=== PATIENT | female | born 1955 | race Caucasian/White ===

== ENCOUNTER 2016-07-08 00:49 | Outpatient (CLI) | END 2016-07-08 00:50 | LOC: AMBL 00:49 | PROVIDERS: ATTEND Family Medicine | DX: R06.02 Shortness of breath (principal); C34.90 Malignant neoplasm of unspecified part of unspecified bronchus or lung; Z99.81 Dependence on supplemental oxygen; Z79.899 Other long term (current) drug therapy ==

== ENCOUNTER 2017-07-26 10:58 | Day surgery (SDC) ==
[2017-07-26] MEDS ORDERED: LIDOCAINE 1% 20 ML MDV ID STA (11:43)
[2017-07-26] MEDS ORDERED: DIPRIVAN 20 ML VIAL IVP ONE (12:51)
[2017-07-26] MEDS ORDERED: VERSED ONE (12:51)
[2017-07-26 14:29] VITALS: BP 118/67; TEMP 98.6
--- NOTE | 2017-07-27 13:34 | OP ---
INDICATIONS FOR PROCEDURE: This is a 62-year-old female who presents for colonoscopy evaluation and abnormal CT scan. CT scan of the abdomen and pelvis suggested thickening in her cecum, possible malignancy. She does have some vague abdominal discomfort. MEDICATIONS: SEE ANESTHESIA NOTES. PROCEDURE: COLONOSCOPY, BIOPSY, SNARE POLYPECTOMY. REPORT: The risks, benefits, alternatives and limitations were discussed in detail with the patient. Informed consent was obtained. After adequate sedation was achieved, a digital rectal exam revealed good tone, no masses. The colonoscope was introduced into the rectum and advanced under direct visual guidance to the cecum. I identified the cecum by transillumination. I could see the IC valve. The cecum was very distorted and deformed. Looking at it from the ascending colon there appeared to be a carpeting polyp covering the entire left wall of the cecum extending to the very proximal ascending colon. This had the appearance of a villous carpeting polyp. I biopsied this for histologic review. I labeled this bottle "carpeting polyp". The base of the cecum was completely distorted. I could not see the appendiceal orifice. Here is where the carpeting polyp was more pronounced. It felt a little firm when I biopsied it. This appeared to be a portion of the diffuse carpeting polyp that may have malignant change present. I could not see all of the cecum secondary to the distortion from this polypoid mass lesion. I biopsied this area and named it "distorted cecum". I did see the bowel but I was not able to intubate the terminal ileum. The scope would not pass into the ileocecal valve into the ileum. I then slowly withdrew the scope in a circumferential manner examining the mucosa quite carefully. I looked on the proximal and distal side of folds and flexures as best as possible. I retroflexed the scope in the right colon and the left colon to increase visualization. In the distal ascending colon there is approximately a 1 cm slightly raised polyp that I removed by snare technique. At the hepatic flexure noted on retroflex view there is a 7 mm semipedunculated polyp that I removed by snare technique. In the sigmoid colon there were two polyps, one is about 8 mm in size and slightly raised. I removed this by snare technique. The other was about 4-5mm in size and I was able to destroy it by snare technique. In the distal sigmoid there were two polyps. Both about 7 mm in size and slightly raised, slightly pedunculated. They were removed by snare technique and placed in the same pathology jar together. In the rectum there were two diminutive polyps that I destroyed using a snare. No other abnormalities noted including on retroflex view of the anal canal. The prep was adequate. The withdrawal time was 21 minutes and 27 seconds. The patient tolerated the procedure well with stable vital signs and pulse oximetry throughout. IMPRESSION: 1. POLYPOID CECAL MASS LESION DISTORTING THE ENTIRE CECUM. THIS APPEARS TO BE A LARGE CARPETING POLYP THAT HAS DISTORTED THE CECUM AND I SUSPECT THERE IS MALIGNANT CHANGE IN THIS SIGNIFICANTLY DISTORTED PORTION. 2. EIGHT (8) POLYPS REMOVED FROM THE COLON DESCRIBED ABOVE. RECOMMENDATIONS: 1. Await pathology results of the cecal mass lesion and the polyp. 2. She is going to need surgical resection of the polypoid cecal mass. I have asked her to followup with her primary care physician in one weeks time about referral to a general surgeon that participates in the patient's insurance. My office will work with the PCP's office. 3. I suspect her vague abdominal discomfort is secondary to this lesion and possibly partial obstruction as it appears to be distorting the IC valve but since she had a CT scan showing some mild thickening in the stomach, I recommend endoscopy evaluation in two weeks to complete the GI evaluation. 4. Recommend repeat colonoscopy examination again in one year. CC: DR. TONNY BULLOCK
== END 2017-07-26 14:10 | disposition home or self-care (01) ==
LOC: SURG 10:58
PROVIDERS: ATTEND Internal Medicine Gastroenterology
DX: R93.5 Abnormal findings on diagnostic imaging of other abdominal regions, including retroperitoneum (principal); D12.2 Benign neoplasm of ascending colon; D12.4 Benign neoplasm of descending colon; D12.3 Benign neoplasm of transverse colon; K63.5 Polyp of colon; R10.9 Unspecified abdominal pain

== ENCOUNTER 2017-08-09 06:50 | Day surgery (SDC) ==
[2017-08-09] MEDS ORDERED: ALBUTEROL 0.083% NEB NEB STA (07:22)
[2017-08-09] MEDS ORDERED: LIDOCAINE 1% 20 ML MDV ID STA (07:22)
[2017-08-09] MEDS ORDERED: LIDOCAINE HCL 2% LUER-JET ONE (09:00)
[2017-08-09] MEDS ORDERED: DIPRIVAN 20 ML VIAL IVP ONE (09:00)
[2017-08-09] MEDS ORDERED: VERSED ONE (09:00)
[2017-08-09 09:14] VITALS: BP 100/58
--- NOTE | 2017-08-10 09:20 | OP ---
INDICATIONS FOR PROCEDURE: 62 year old female presents for endoscopy evaluation of an abnormal CT scan. This showed some nonspecific thickening of the gastric wall. She has chronic abdominal pain on the last 8-9 months. Colonoscopy revealed abnormal cecal area. She is scheduled for endoscopy investigation. MEDICATIONS: SEE ANESTHESIA NOTES. PROCEDURE: ENDOSCOPY, DIONY BIOPSY. REPORT: The risks, benefits, alternatives and limitations were discussed in detail with the patient. Informed consent was obtained. After adequate sedation was achieved, the video endoscope was introduced in the posterior pharynx and esophagus under direct vision and easily advanced down to the second portion of the duodenum. I then slowly withdrew. The duodenal mucosa appeared unremarkable as did the duodenal bulb. The antrum and the body appeared somewhat atrophic. There were no ulcerations or inflammatory lesions present. No mass lesion present. The lining was smooth throughout although it appeared atrophic. Two biopsies were obtained from the antrum wall and from the body for H. Pylori testing. The scope was retroflexed to look at the cardia and fundus which was unremarkable. The scope was anteflexed and withdrawn back through the esophagus which was unremarkable. The patient tolerated the procedure well with stable vital signs and pulse oximetry throughout. IMPRESSION: 1. Mild appearing atrophic gastritis 2. Nothing that would account for intestinal symptoms RECOMMENDATIONS: 1. Await H. Pylori and if it's positive we will initiate treatment when appropriate 2. Keep appointment with Dr. Crowe in [place] for general surgical evaluation of the abnormal colon 3. We will see her back in the office as needed. CC: Dr. Chung BULLOCK
== END 2017-08-09 09:45 | disposition home or self-care (01) ==
LOC: SURG 06:50
PROVIDERS: ATTEND Internal Medicine Gastroenterology
DX: K29.40 Chronic atrophic gastritis without bleeding (principal); R93.3 Abnormal findings on diagnostic imaging of other parts of digestive tract
CPT/HCPCS: 87339; 94640

== ENCOUNTER 2017-08-29 23:01 | Outpatient (CLI) | END 2017-08-29 23:13 | disposition short-term general hospital (02) | LOC: AMBL 23:01 | PROVIDERS: ATTEND Internal Medicine Geriatric Medicine | DX: R10.30 Lower abdominal pain, unspecified (principal); R11.0 Nausea; R19.7 Diarrhea, unspecified; J44.9 Chronic obstructive pulmonary disease, unspecified; Z99.81 Dependence on supplemental oxygen ==

== ENCOUNTER 2017-10-15 15:41 | Outpatient (CLI) | END 2017-10-15 15:55 | disposition short-term general hospital (02) | LOC: AMBL 15:41 | PROVIDERS: ATTEND Internal Medicine Geriatric Medicine | DX: R40.4 Transient alteration of awareness (principal); E86.0 Dehydration; C34.90 Malignant neoplasm of unspecified part of unspecified bronchus or lung; C78.5 Secondary malignant neoplasm of large intestine and rectum; J44.9 Chronic obstructive pulmonary disease, unspecified; Z98.890 Other specified postprocedural states ==

== ENCOUNTER 2018-08-20 09:04 | Outpatient (CLI) | END 2018-08-20 09:05 | disposition home or self-care (01) | LOC: AMBL 09:04 | PROVIDERS: ATTEND Emergency Medicine | DX: R06.02 Shortness of breath (principal); R06.2 Wheezing; J44.9 Chronic obstructive pulmonary disease, unspecified; Z85.118 Personal history of other malignant neoplasm of bronchus and lung ==

== ENCOUNTER 2018-09-12 06:58 | Day surgery (SDC) ==
[2018-09-12] MEDS ORDERED: LIDOCAINE 1% 20 ML MDV ID STA (07:15)
[2018-09-12 07:30] VITALS: TEMP 96.6
[2018-09-12] MEDS ORDERED: DIPRIVAN 20 ML VIAL IVP ONE (08:40)
[2018-09-12] MEDS ORDERED: VERSED ONE (08:40)
[2018-09-12 12:00] VITALS: BP 125/67
--- NOTE | 2018-09-13 09:46 | OP ---
INDICATIONS FOR PROCEDURE: 63 YEAR OLD FEMALE PRESENTS FOR COLONOSCOPY. A YEAR AGO SHE WAS FOUND TO HAVE A CECAL MASS. SHE UNDERWENT SURGICAL RESECTION AND FOUND TO HAVE COLON CANCER SHE TELLS ME. SHE DID HAVE TWO ROUNDS OF CHEMOTHERAPY BUT STOPPED SECONDARY TO INABILITY TO TOLERATE. SHE IS ASYMPTOMATIC NOW. SHE PRESENTS FOR COLONOSCOPY EXAM. MEDICATIONS: SEE ANESTHESIA NOTES. PROCEDURE: COLONOSCOPY. SNARE POLYPECTOMY. REPORT: The risks, benefits, alternatives and limitations were discussed in detail with the patient. Informed consent was obtained. After adequate sedation was achieved, a digital rectal exam revealed good tone, no masses. The colonoscope was introduced into the rectum and advanced under direct visual guidance to the ileocolonic anastomosis. This was in the very proximal transverse colon. The anastomosis appeared unremarkable. The small bowel mucosa appeared unremarkable. I then slowly withdrew the scope in circumferential manner and examining the mucosa quite carefully. I was able to look on the proximal and distal sides of fold and flexures as best as possible. In the very proximal transverse colon there was a small slightly raised 5mm sessile polyp. I removed this by snare technique. Withdrawing the scope further revealed no other abnormalities until the rectum. In the rectum there was three small 4-5mm sessile polyps that appeared benign. All three of these were removed by snare technique. The smallest one was destroyed. On the retroflex view of the anal canal there was a non-engorged hemorrhoidal vein. No other abnormalities were noted. Withdraw time was 11 minutes and 35 seconds. The patient tolerated the procedure well with stable vital signs and pulse oximetry throughout. IMPRESSION: 1. 4 small benign appearing polyps successfully removed 2. Unremarkable surgical anastomosis RECOMMENDATIONS: 1. High fiber diet 2. Office visit as needed 3. Await pathology results and if everything is benign as expected I suggest a surveillance colonoscopy examination again 2 years or sooner if signs or symptoms would indicate otherwise. CC: Dr. Chung BULLOCK
== END 2018-09-12 10:15 | disposition home or self-care (01) ==
LOC: SURG 06:58
PROVIDERS: ATTEND Internal Medicine Gastroenterology
DX: Z86.010 Personal history of colon polyps (principal); D12.3 Benign neoplasm of transverse colon; K62.1 Rectal polyp